=== PATIENT | male | born 1995 | race Two or more races ===

== ENCOUNTER 2018-05-09 16:49 | Emergency (ER) | payer SELFPAY ==
[2018-05-09] MEDS ORDERED: Alum Hydrox/Mag Hydrox/Simeth 15 ML, Metoclopramide 5 MG, Lidocaine 2% 5 ML PO ONE ×3 (17:30)
--- NOTE | 2018-05-09 17:33 | EDM.PDOC ---
ED HPI GENERAL MEDICAL PROBLEM - General Chief Complaint: Abdominal Pain Stated Complaint: UPPER STOMACHE PAIN Time Seen by Provider: 05/09/18 17:20 - History of Present Illness INITIAL COMMENTS - FREE TEXT/NARRATIVE: HISTORY AND PHYSICAL: History of present illness: The patient is a 22-year-old male with no GI or abdominal surgical history who presents with 7 days of mid abdominal pain that does not localize right or left and is not associated with nausea vomiting fever or diarrhea. The patient says he has had normal formed stools that have been green in color and they're not black and bloody and he thought maybe he ate some bad food causing this to occur. He is not particularly bloated or gassy and has had no upper respiratory complaints. He has not tried anything [id number] for the discomfort and is very vague about describing it. Initially when it started it was more severe and it has improved but he has never had this before. He currently is eating and drinking. As it as a sharp crampy pain at the mid abdominal area again does not localize right or left nor upper or lower in location. There is no flank pain or urinary complaints. Review of systems: As per history of present illness and below otherwise all systems reviewed and negative. Past medical history: As per history of present illness and as reviewed below otherwise noncontributory. Surgical history: As per history of present illness and as reviewed below otherwise noncontributory. Social history: No reported history of drug or alcohol abuse. Family history: As per history of present illness and as reviewed below otherwise noncontributory. Physical exam: General: Well-developed well-nourished man who is nontoxic and vital signs are noted by me. HEENT: Atraumatic, normocephalic, , negative for conjunctival pallor or scleral icterus, mucous membranes moist, throat clear, neck supple, nontender, trachea midline. Lungs: Clear to auscultation, breath sounds equal bilaterally, chest nontender. Heart: S1S2, regular rate and rhythm no overt murmurs Abdomen: Soft, nondistended, nontender. Bowel sounds are hypoactive and there is no rebound or guarding. On deep palpation I am unable to elicit much discomfort or tenderness in the mid abdominal area which is the patient's location of his discomfort. Negative for masses or hepatosplenomegaly. Negative for costovertebral tenderness. Pelvis: Stable nontender. Genitourinary: Deferred. Rectal: Deferred. Extremities: Atraumatic, negative for cords or calf pain. Neurovascular unremarkable. Neuro: Awake, alert, oriented. Cranial nerves II through XII unremarkable. Cerebellum unremarkable. Motor and sensory unremarkable throughout. Exam nonfocal. Diagnostics: CBC CMP amylase lipase H. pylori abdominal x-rays Therapeutics: GI cocktail Impression: Mid abdominal pain subacute stable Definitive disposition and diagnosis as appropriate pending reevaluation and review of above. mid abdomen Pain Score (Numeric/FACES): 5 - Related Data Allergies Allergy/AdvReac Type Severity Reaction Status Date / Time No Known Allergies Allergy Verified 05/09/18 17:08 Home Meds: Home Meds . [No Known Home Meds] 05/09/18 [History] Past Medical History - Past Health History Medical/Surgical History: Denies Medical/Surgical History Social & Family History - Tobacco Use Smoking Status *Q: Never Smoker - Caffeine Use Caffeine Use: Reports: Coffee, Energy Drinks, Soda, Tea - Recreational Drug Use Recreational Drug Use: No ED ROS GENERAL - Review of Systems Review Of Systems: ROS reveals no pertinent complaints other than HPI. ED EXAM, GENERAL - Physical Exam Exam: See Below (See dictation) Course - Vital Signs Last Recorded V/S: Last Vital Signs Temp 36.4 C 05/09/18 17:06 Pulse 72 05/09/18 17:06 Resp 12 05/09/18 17:06 BP 136/79 05/09/18 17:06 Pulse Ox 95 05/09/18 17:06 - Orders/Labs/Meds Orders: Active Orders 24 hr Category Date Time Status Abdomen Series w Chest 1V [CR] Stat Exams 05/09/18 17:30 Taken Labs: Laboratory Tests 05/09/18 05/09/18 05/09/18 Range/Units 17:38 17:38 17:38 WBC 10.64 (4.0-11.0) K/uL RBC 5.24 (4.50-5.90) M/uL Hgb 15.1 (13.0-17.0) g/dL Hct 45.9 (38.0-50.0) % MCV 87.6 (80.0-98.0) fL MCH 28.8 (27.0-32.0) pg MCHC 32.9 (31.0-37.0) g/dL RDW Std Deviation 42.3 (28.0-62.0) fl RDW Coeff of Zaheer 13 (11.0-15.0) % Plt Count 299 (150-400) K/uL MPV 11.10 (7.40-12.00) fL Neut % (Auto) 62.4 (48.0-80.0) % Lymph % (Auto) 30.1 (16.0-40.0) % [place] % (Auto) 6.4 (0.0-15.0) % Eos % (Auto) 0.9 (0.0-7.0) % Baso % (Auto) 0.2 (0.0-1.5) % Neut # (Auto) 6.6 H (1.4-5.7) K/uL Lymph # (Auto) 3.2 H (0.6-2.4) K/uL [place] # (Auto) 0.7 (0.0-0.8) K/uL Eos # (Auto) 0.1 (0.0-0.7) K/uL Baso # (Auto) 0.0 (0.0-0.1) K/uL Nucleated RBC % 0.0 /100WBC Nucleated RBCs # 0 K/uL Sodium 138 (136-148) mmol/L Potassium 4.3 (3.5-5.1) mmol/L Chloride 104 (98-107) mmol/L Carbon Dioxide 29.2 (21.0-32.0) mmol/L BUN 12 (7.0-18.0) mg/dL Creatinine 1.0 (0.8-1.3) mg/dL Est Cr Clr Drug Dosing 114.89 mL/min Estimated GFR (MDRD) > 60.0 ml/min Glucose 98 (74-106) mg/dL Calcium 9.5 (8.5-10.1) mg/dL Total Bilirubin 0.2 (0.2-1.0) mg/dL AST 19 (15-37) IU/L ALT 37 (14-63) IU/L Alkaline Phosphatase 68 (46-116) U/L Total Protein 8.4 H (6.4-8.2) g/dL Albumin 3.8 (3.4-5.0) g/dL Globulin 4.6 H (2.0-3.5) g/dL Albumin/Globulin Ratio 0.8 L (1.3-2.8) Amylase 46 (25-115) U/L Lipase 78 (73-393) U/L H. pylori IgG Antibody NEGATIVE (NEG) Meds: Medications Discontinued Medications Generic Name Dose Route Start Last Admin Trade Name Freq PRN Reason Stop Dose Admin Al Hydroxide/Mg Hydroxide 15 0 ml 05/09/18 17:30 05/09/18 18:10 ml/ Metoclopramide HCl 5 mg/ PO 05/09/18 17:31 1 each Lidocaine HCl 5 ml ONETIME ONE Administration Departure - Departure Time of Disposition: 18:49 Disposition: Home, Self-Care 01 Condition: Good Clinical Impression: Abdominal pain Qualifiers: Abdominal location: periumbilical Qualified Code(s): R10.33 - Periumbilical pain - Discharge Information Referrals: PCP,None [Primary Care Provider] - Forms: ED Department Discharge Additional Instructions: The following information is given to patients seen in the emergency department who are being discharged to home. This information is to outline your options for follow-up care. We provide all patients seen in our emergency department with a follow-up referral. The need for follow-up, as well as the timing and circumstances, are variable depending upon the specifics of your emergency department visit. If you don't have a primary care physician on staff, we will provide you with a referral. We always advise you to contact your personal physician following an emergency department visit to inform them of the circumstance of the visit and for follow-up with them and/or the need for any referrals to a consulting specialist. The emergency department will also refer you to a specialist when appropriate. This referral assures that you have the opportunity for followup care with a specialist. All of these measure are taken in an effort to provide you with optimal care, which includes your followup. Under all circumstances we always encourage you to contact your private physician who remains a resource for coordinating your care. When calling for followup care, please make the office aware that this follow-up is from your recent emergency room visit. If for any reason you are refused follow-up, please contact the [facility] emergency department at and ask to speak to the emergency department charge nurse. [facility] [address] [place] [address] Push hydration and use all medications as prescribed, Bentyl and Prevacid. Please avoid caffeinated products and eat a bland diet. Please monitor your pain and bowel movements and please call and schedule a follow-up appointment in our clinic using resources given to above for further care and evaluation. Return to ER as needed and as discussed - My Orders Last 24 Hours: My Active Orders 05/09/18 17:30 Abdomen Series w Chest 1V [CR] Stat - Assessment/Plan Last 24 Hours: My Active Orders 05/09/18 17:30 Abdomen Series w Chest 1V [CR] Stat
[2018-05-09 18:15] LABS: CHLORIDE,CL 104 mmol/L (98-107); SODIUM,NA 138 mmol/L (136-148)
--- NOTE | 2018-05-10 10:01 | CR ---
EXAM DATE: 05/09/18 PATIENT'S AGE: 22 Patient: ROBIN COLEMAN Facility: [place], [place] Site . Site : 1995 Study: XRay Chest/Abd/Pelvis acute series [id number] 6:05:12 PM Ordering Physician: Jaskaran James Final Report: INDICATION: Periumbilical pain. TECHNIQUE: Flat and upright, 5 images. COMPARISON: None. FINDINGS: Bowel gas pattern within normal limits. No free air or significant abnormal calcification. CONCLUSION: Negative abdomen. Dictated by Moiz Silvestre MD @ May 09 2018 6:41PM (Electronic Signature) Report Signed by Proxy. [id number]
== END 2018-05-09 19:05 | disposition home or self-care (01) ==
LOC: MW.ED 16:49
DX: R10.33 Periumbilical pain (principal)
CPT/HCPCS: 36415; 74022; 80053; 82150; 83690; 85025; 86677; 99284; A9270; 99283